=== PATIENT | male | born 1950 | race Two or more races ===

== ENCOUNTER 2023-12-02 18:55 | Inpatient (IN) | payer MEDICAID, OTHER ==
[~2023-12-02] VITALS: Ht 165.1 cm; Wt 78.2 kg
[2023-12-02 19:55] LABS: Basophils # (auto) 0 10 ^3/uL (0-0.2); Basophils % (auto) 0.9 % (0.0-2.0); Eosinophils # (auto) 0.1 10 ^3/uL (0-0.8); Hematocrit 43.7 % (41.0-53.0); Hemoglobin 13.9 g/dL (13.5-17.5); Lymphocytes # (auto) 1.3 10 ^3/uL (0.4-5.4); Lymphocytes % (auto) 24.6 % (10.0-50.0); Mean Corpuscular Hemoglobin 28.3 pg (28.0-32.0); Mean Corpuscular Hgb Conc. 31.8 g/dL (32.0-36.0); Monocytes # (auto) 0.3 10 ^3/uL (0-1.3); Monocytes % (auto) 5.5 % (0.0-12.0); Neutrophils # (auto) 3.6 10 ^3/uL (1.6-8.6); Nucleated Red Blood Cells % 0.1 %; Red Blood Cells 4.91 10^6/uL (4.5-5.90); Red Cell Distribution Width 13.5 % (11.8-14.3); White Blood Cell 5.3 10^3/uL (4.4-10.8)
[2023-12-02 20:14] LABS: Alanine Aminotransferase 27 U/L (7-40); Alkaline Phosphatase 185 U/L (46-116); Anion Gap 7 (5-15); BUN/Creatinine Ratio 9.6 (10.0-20.0); Blood Urea Nitrogen 15 mg/dL (9-23); Calcium 9.4 mg/dL (8.7-10.4); Carbon Dioxide 25 mmol/L (20-30); Chloride 89 mmol/L (98-107); Potassium 4.5 mmol/L (3.5-5.1); Sodium 121 mmol/L (136-145)
[2023-12-02 20:15] LABS: Albumin 4.2 g/dL (3.2-4.8); Aspartate Aminotransferase 12 U/L (13-40); Bilirubin, Total 0.6 mg/dL (0.2-1.0); Total Protein 6.4 g/dL (5.7-8.2)
[2023-12-02 20:38] LABS: Glucose 915 mg/dL (74-106)
[2023-12-02] MEDS: SODIUM CHLORIDE 0.9% 1,000 ML IV ONE ×2 (21:13→22:13)
[2023-12-02 21:23] LABS: Urine Bacteria NONE SEEN /hpf (None Seen); Urine Blood TRACE /uL (Negative); Urine Clarity Clear (Clear); Urine Color Colorless (Yellow); Urine Protein, UAD Negative (Negative); Urine Specific Gravity 1.023 (1.001-1.035); Urine Urobilinogen Normal (Negative); Urine WBC <1 /hpf (0 - 3)
[2023-12-02] MEDS ORDERED: ONDANSETRON HCL 4 MG/2 ML VIAL IV PRN (22:30)
[2023-12-02] MEDS ORDERED: HYDROcodone-ACET 5/325MG TAB PO PRN (22:30)
[2023-12-02] MEDS ORDERED: ACETAMINOPHEN 325 MG TAB PO PRN (22:30)
[2023-12-02] MEDS ORDERED: DEXTROSE (50%) 50ML SYRG IV PRN ×2 (22:30→23:15)
[2023-12-02] MEDS ORDERED: DOCUSATE SOD 100 MG CAP PO PRN (22:30)
[2023-12-02] MEDS: SODIUM CHLORIDE 0.9% 1,000 ML IV SCH (23:14)
[2023-12-02] MEDS ORDERED: INSULIN DRIP 100 UNIT/100ML 100 ML IV SCH (23:15)
[2023-12-02] MEDS ORDERED: SOD CHL 0.9%/ KCL 20MEQ 1,000 ML IV SCH (23:15)
[2023-12-02 23:29] LABS: Base Excess -5.3 mmol/L (-2.0-2.0)
[2023-12-02 23:37] LABS: Basophils # (auto) 0 10 ^3/uL (0-0.2); Basophils % (auto) 0.8 % (0.0-2.0); Eosinophils # (auto) 0.1 10 ^3/uL (0-0.8); Eosinophils % (auto) 1.3 % (0.0-7.0); Hematocrit 40.1 % (41.0-53.0); Hemoglobin 13.2 g/dL (13.5-17.5); Lymphocytes # (auto) 1.4 10 ^3/uL (0.4-5.4); Lymphocytes % (auto) 24.3 % (10.0-50.0); Mean Corpuscular Hemoglobin 28.5 pg (28.0-32.0); Mean Corpuscular Hgb Conc. 32.9 g/dL (32.0-36.0); Mean Corpuscular Volume 86.7 fL (80.0-100.0); Monocytes # (auto) 0.4 10 ^3/uL (0-1.3); Monocytes % (auto) 7.2 % (0.0-12.0); Neutrophils # (auto) 3.9 10 ^3/uL (1.6-8.6); Neutrophils % (auto) 66.4 % (37.0-80.0); Red Blood Cells 4.63 10^6/uL (4.5-5.90); Red Cell Distribution Width 13.3 % (11.8-14.3); White Blood Cell 5.8 10^3/uL (4.4-10.8)
[2023-12-02] MEDS ORDERED: MORPHINE SULFATE INJ 2 MG/ml SYRG IV PRN (23:45)
[2023-12-02] MEDS ORDERED: NITROGLYCERIN 0.4 MG SL TAB SL PRN (23:45)
[2023-12-02 23:50] LABS: Chloride 101 mmol/L (98-107); Potassium 4.1 mmol/L (3.5-5.1)
[2023-12-02 23:51] LABS: Anion Gap 9 (5-15); Calcium 8.7 mg/dL (8.7-10.4); Carbon Dioxide 20 mmol/L (20-30)
[2023-12-02 23:56] LABS: BUN/Creatinine Ratio 9.9 (10.0-20.0); Blood Urea Nitrogen 12 mg/dL (9-23)
[2023-12-02 23:58] LABS: Phosphorus 2.9 mg/dL (2.4-5.1)
[2023-12-03] MEDS: ACCU-CHEK COMFORT CURVE STRIP VI SCH
[2023-12-03] MEDS ORDERED: ACCU-CHEK COMFORT CURVE STRIP VI SCH
[2023-12-03 00:04] LABS: Sodium 130 mmol/L (136-145)
[2023-12-03 00:05] LABS: Glucose 625 mg/dL (74-106)
[2023-12-03] MEDS: InsuLIN REG 1unit/0.01ml Soln (100units/ml) SC SCH (00:06)
[2023-12-03] MEDS: SODIUM CHLORIDE 0.9% 1,000 ML IV SCH (00:18)
[2023-12-03] MEDS: INSULIN LANTUS (GLARGINE) 1 /0.01ml (100units/ml) SC ONE (04:45)
[2023-12-03 05:03] LABS: Basophils # (auto) 0.1 10 ^3/uL (0-0.2); Basophils % (auto) 0.9 % (0.0-2.0); Eosinophils # (auto) 0.1 10 ^3/uL (0-0.8); Eosinophils % (auto) 0.9 % (0.0-7.0); Hematocrit 40.5 % (41.0-53.0); Hemoglobin 13.6 g/dL (13.5-17.5); Lymphocytes # (auto) 1.6 10 ^3/uL (0.4-5.4); Mean Corpuscular Hemoglobin 28.4 pg (28.0-32.0); Mean Corpuscular Hgb Conc. 33.5 g/dL (32.0-36.0); Mean Corpuscular Volume 84.9 fL (80.0-100.0); Monocytes # (auto) 0.5 10 ^3/uL (0-1.3); Monocytes % (auto) 6.5 % (0.0-12.0); Neutrophils # (auto) 5.2 10 ^3/uL (1.6-8.6); Neutrophils % (auto) 69.7 % (37.0-80.0); Nucleated Red Blood Cells % 0.1 %; Red Blood Cells 4.77 10^6/uL (4.5-5.90); Red Cell Distribution Width 13.1 % (11.8-14.3); White Blood Cell 7.4 10^3/uL (4.4-10.8)
[2023-12-03 05:15] LABS: Alanine Aminotransferase 23 U/L (7-40); Albumin 4.2 g/dL (3.2-4.8); Alkaline Phosphatase 132 U/L (46-116); Anion Gap 7 (5-15); Aspartate Aminotransferase 12 U/L (13-40); BUN/Creatinine Ratio 11.5 (10.0-20.0); Bilirubin, Total 0.5 mg/dL (0.2-1.0); Blood Urea Nitrogen 12 mg/dL (9-23); Calcium 9.3 mg/dL (8.7-10.4); Carbon Dioxide 22 mmol/L (20-30); Chloride 107 mmol/L (98-107); Potassium 3.7 mmol/L (3.5-5.1); Sodium 136 mmol/L (136-145); Total Protein 6.6 g/dL (5.7-8.2)
[2023-12-03 05:34] LABS: Glucose 254 mg/dL (74-106)
[2023-12-03] MEDS: INSULIN LANTUS (GLARGINE) 1 /0.01ml (100units/ml) SC SCH (07:00)
[2023-12-03] MEDS: CLINDAMYCIN 600MG IV 50 ML IV ONE (11:14)
[2023-12-03] MEDS: ENOXAPARIN SOD 40 MG/0.4 ML SYRINGE SC SCH (11:14)
[2023-12-03 11:28] LABS: Chloride 108 mmol/L (98-107); Potassium 3.7 mmol/L (3.5-5.1); Sodium 136 mmol/L (136-145)
[2023-12-03 11:29] LABS: Anion Gap 6 (5-15); Carbon Dioxide 22 mmol/L (20-30)
[2023-12-03 11:30] LABS: Calcium 9.1 mg/dL (8.7-10.4)
[2023-12-03 11:35] LABS: BUN/Creatinine Ratio 12.5 (10.0-20.0); Blood Urea Nitrogen 11 mg/dL (9-23); Glucose 194 mg/dL (74-106)
[2023-12-03 11:40] VITALS: PULSE 61; RESP 16; O2SAT 98
[2023-12-03 17:47] LABS: Chloride 110 mmol/L (98-107); Potassium 3.7 mmol/L (3.5-5.1); Sodium 138 mmol/L (136-145)
[2023-12-03 17:48] LABS: Anion Gap 4 (5-15); Calcium 8.6 mg/dL (8.5-10.1); Carbon Dioxide 24 mmol/L (20-30)
[2023-12-03 17:53] LABS: BUN/Creatinine Ratio 12.9 (10.0-20.0); Blood Urea Nitrogen 11 mg/dL (9-23); Glucose 238 mg/dL (74-106)
[2023-12-03 19:20] VITALS: PULSE 78; RESP 16; O2SAT 98
[2023-12-03] MEDS: CLINDAMYCIN 600MG IV 50 ML IV SCH (20:20)
[2023-12-04] VITALS (8 sets, daily range): BP systolic 128–152; BP diastolic 63–105; PULSE 54–78; RESP 14–18; TEMP 97.7–98.7; O2SAT 93–99
[2023-12-04 10:58] LABS: Basophils # (auto) 0 10 ^3/uL (0-0.2); Basophils % (auto) 0.7 % (0.0-2.0); Eosinophils # (auto) 0.1 10 ^3/uL (0-0.8); Eosinophils % (auto) 1.1 % (0.0-7.0); Hematocrit 39.6 % (41.0-53.0); Lymphocytes # (auto) 1.5 10 ^3/uL (0.4-5.4); Lymphocytes % (auto) 26.7 % (10.0-50.0); Mean Corpuscular Hemoglobin 28.2 pg (28.0-32.0); Mean Corpuscular Volume 85.6 fL (80.0-100.0); Monocytes # (auto) 0.4 10 ^3/uL (0-1.3); Monocytes % (auto) 6.5 % (0.0-12.0); Neutrophils # (auto) 3.7 10 ^3/uL (1.6-8.6); Red Blood Cells 4.62 10^6/uL (4.5-5.90); Red Cell Distribution Width 13.4 % (11.8-14.3); White Blood Cell 5.7 10^3/uL (4.4-10.8)
[2023-12-04 11:15] LABS: Anion Gap 6 (5-15); Carbon Dioxide 25 mmol/L (20-30); Chloride 106 mmol/L (98-107); Potassium 4.1 mmol/L (3.5-5.1); Sodium 137 mmol/L (136-145)
[2023-12-04 11:16] LABS: Calcium 8.7 mg/dL (8.5-10.1)
[2023-12-04 12:03] LABS: Glucose 316 mg/dL (74-106)
[2023-12-04 12:04] LABS: BUN/Creatinine Ratio 10.6 (10.0-20.0); Blood Urea Nitrogen 10 mg/dL (9-23); Magnesium 1.7 mg/dL (1.6-2.6)
[2023-12-04] MEDS ORDERED: CEFEPIME 2GM/50ML NS 50 ML IV ONE (12:45)
[2023-12-04] MEDS ORDERED: VANCOMYCIN PER PHARMACY 0 MG IV SCH (12:45)
[2023-12-04] MEDS ORDERED: CEFEPIME 2GM/50ML NS 50 ML IV SCH (14:00)
[2023-12-04] MEDS: VANCOMYCIN 1GM/200ML 200 ML IV ONE (15:26)
[2023-12-05] VITALS (7 sets, daily range): BP systolic 119–147; BP diastolic 61–75; PULSE 61–77; RESP 15–19; TEMP 97.5–98.4; O2SAT 95–97
[2023-12-05] MEDS: VANCOMYCIN 1GM/200ML 200 ML IV SCH (06:27)
[2023-12-05 06:37] LABS: Basophils # (auto) 0 10 ^3/uL (0-0.2); Basophils % (auto) 0.5 % (0.0-2.0); Eosinophils # (auto) 0 10 ^3/uL (0-0.8); Eosinophils % (auto) 0.6 % (0.0-7.0); Hematocrit 33.3 % (41.0-53.0); Hemoglobin 11.1 g/dL (13.5-17.5); Lymphocytes # (auto) 1.3 10 ^3/uL (0.4-5.4); Mean Corpuscular Hemoglobin 28.7 pg (28.0-32.0); Mean Corpuscular Hgb Conc. 33.3 g/dL (32.0-36.0); Mean Corpuscular Volume 86.2 fL (80.0-100.0); Monocytes # (auto) 0.5 10 ^3/uL (0-1.3); Monocytes % (auto) 7.9 % (0.0-12.0); Neutrophils # (auto) 4.6 10 ^3/uL (1.6-8.6); Red Blood Cells 3.86 10^6/uL (4.5-5.90); Red Cell Distribution Width 12.9 % (11.8-14.3); White Blood Cell 6.5 10^3/uL (4.4-10.8)
[2023-12-05 06:45] LABS: Anion Gap 7 (5-15); Carbon Dioxide 21 mmol/L (20-30); Chloride 114 mmol/L (98-107); Potassium 2.9 mmol/L (3.5-5.1); Sodium 142 mmol/L (136-145)
[2023-12-05 06:46] LABS: Calcium 7.7 mg/dL (8.7-10.4)
[2023-12-05 06:51] LABS: BUN/Creatinine Ratio 13.2 (10.0-20.0); Blood Urea Nitrogen 9 mg/dL (9-23); Magnesium 1.6 mg/dL (1.6-2.6)
[2023-12-05 06:57] LABS: Glucose 64 mg/dL (74-106)
[2023-12-05] MEDS: MAGNESIUM SULFATE 1GM/100ML 100 ML IV SCH (10:13)
[2023-12-05] MEDS: POTASSIUM CHL 20MEQ/100ML 100 ML IV SCH (11:21)
[2023-12-06 05:00] VITALS: BP 121/72; PULSE 66; RESP 18; TEMP 98.4; O2SAT 97
[2023-12-06 06:19] LABS: Basophils # (auto) 0.1 10 ^3/uL (0-0.2); Basophils % (auto) 0.6 % (0.0-2.0); Eosinophils # (auto) 0 10 ^3/uL (0-0.8); Eosinophils % (auto) 0.6 % (0.0-7.0); Hematocrit 35.9 % (41.0-53.0); Lymphocytes # (auto) 1.3 10 ^3/uL (0.4-5.4); Lymphocytes % (auto) 15.2 % (10.0-50.0); Mean Corpuscular Hemoglobin 28.7 pg (28.0-32.0); Mean Corpuscular Hgb Conc. 33.3 g/dL (32.0-36.0); Monocytes # (auto) 0.6 10 ^3/uL (0-1.3); Monocytes % (auto) 6.6 % (0.0-12.0); Neutrophils # (auto) 6.6 10 ^3/uL (1.6-8.6); Nucleated Red Blood Cells % 0.1 %; Red Blood Cells 4.18 10^6/uL (4.5-5.90); Red Cell Distribution Width 13.3 % (11.8-14.3); White Blood Cell 8.5 10^3/uL (4.4-10.8)
[2023-12-06 06:31] LABS: Chloride 108 mmol/L (98-107); Potassium 3.8 mmol/L (3.5-5.1); Sodium 140 mmol/L (136-145)
[2023-12-06 06:32] LABS: Anion Gap 8 (5-15); Calcium 8.7 mg/dL (8.7-10.4); Carbon Dioxide 24 mmol/L (20-30)
[2023-12-06 06:37] LABS: BUN/Creatinine Ratio 12.3 (10.0-20.0); Blood Urea Nitrogen 10 mg/dL (9-23); Glucose 69 mg/dL (74-106)
[2023-12-06 08:00] VITALS: BP 156/70; PULSE 65; PULSE 69; RESP 20; TEMP 98.3; O2SAT 97
[2023-12-06 08:45] VITALS: BP 156/70; PULSE 69; RESP 20; TEMP 98.3; O2SAT 97
[2023-12-06] MEDS: hydrALAZINE HCL 20 MG/ML VL IV PRN (10:12)
[2023-12-06 12:35] VITALS: BP 127/69; PULSE 67; RESP 20; TEMP 98.1; O2SAT 96
[2023-12-06 16:35] VITALS: BP 120/68; PULSE 69; RESP 18; TEMP 98.2; O2SAT 97
[2023-12-06] MEDS: metFORMIN HYDROCHLORIDE 500 MG TAB PO SCH (17:17)
[2023-12-06 20:00] VITALS: BP 137/65; PULSE 78; PULSE 92; RESP 20; TEMP 97.5; O2SAT 96
[2023-12-06] MEDS: VANCOMYCIN 1GM/200ML 200 ML IV SCH (22:13)
[2023-12-07 01:00] VITALS: BP 141/68; PULSE 67; RESP 18; TEMP 98.2; O2SAT 96
[2023-12-07 05:00] VITALS: BP 140/68; PULSE 76; RESP 18; TEMP 97.6; O2SAT 96
[2023-12-07 05:47] LABS: Basophils # (auto) 0.1 10 ^3/uL (0-0.2); Basophils % (auto) 0.6 % (0.0-2.0); Eosinophils # (auto) 0.1 10 ^3/uL (0-0.8); Hematocrit 36.8 % (41.0-53.0); Hemoglobin 12.2 g/dL (13.5-17.5); Lymphocytes # (auto) 1.7 10 ^3/uL (0.4-5.4); Lymphocytes % (auto) 21.6 % (10.0-50.0); Mean Corpuscular Hemoglobin 28.9 pg (28.0-32.0); Mean Corpuscular Hgb Conc. 33.1 g/dL (32.0-36.0); Mean Corpuscular Volume 87.4 fL (80.0-100.0); Monocytes # (auto) 0.6 10 ^3/uL (0-1.3); Monocytes % (auto) 7.1 % (0.0-12.0); Neutrophils # (auto) 5.4 10 ^3/uL (1.6-8.6); Neutrophils % (auto) 69.7 % (37.0-80.0); Red Blood Cells 4.21 10^6/uL (4.5-5.90); Red Cell Distribution Width 13.6 % (11.8-14.3); White Blood Cell 7.8 10^3/uL (4.4-10.8)
[2023-12-07 06:06] LABS: Alanine Aminotransferase 21 U/L (7-40); Albumin 3.3 g/dL (3.2-4.8); Alkaline Phosphatase 93 U/L (46-116); Anion Gap 6 (5-15); Aspartate Aminotransferase 24 U/L (13-40); BUN/Creatinine Ratio 10.5 (10.0-20.0); Blood Urea Nitrogen 8 mg/dL (9-23); CRP High Sensitivity 0.09 mg/dL (<1.0); Calcium 8.5 mg/dL (8.5-10.1); Carbon Dioxide 24 mmol/L (20-30); Chloride 109 mmol/L (98-107); Glucose 111 mg/dL (74-106); Potassium 3.7 mmol/L (3.5-5.1); Sodium 139 mmol/L (136-145)
[2023-12-07 06:07] LABS: Bilirubin, Total 0.4 mg/dL (0.2-1.0); Total Protein 5.1 g/dL (5.7-8.2)
[2023-12-07 06:36] LABS: Magnesium 1.9 mg/dL (1.6-2.6)
[2023-12-07] MEDS: glipiZIDE 5 MG TAB PO SCH (06:49)
[2023-12-07 08:00] VITALS: BP 147/71; PULSE 64; PULSE 66; RESP 20; TEMP 97.9; O2SAT 92
[2023-12-07] MEDS ORDERED: METF-370 PO (08:51)
[2023-12-07] MEDS ORDERED: GLIP5TAB12 PO (08:51)
[2023-12-07] MEDS ORDERED: CLIN150C18 PO (08:51)
[2023-12-07] MEDS ORDERED: BLOO-169 BC (11:12)
[2023-12-07 12:51] VITALS: BP 128/70; PULSE 70; RESP 20; TEMP 97.9; O2SAT 97
[2023-12-07 12:55] VITALS: BP 128/70; PULSE 70; RESP 20; TEMP 97.9; O2SAT 97
[2023-12-07] MEDS: CLINDAMYCIN HCL 150 MG CAP PO SCH (14:10)
== END 2023-12-07 14:43 | disposition home or self-care (01) | DRG 682 ==
LOC: ER 18:55 → TELE 23:49 → TELE-WESTW 12-03 23:00
PROVIDERS: ADMIT Internal Medicine; ATTEND Internal Medicine
DX: N17.0 Acute kidney failure with tubular necrosis (principal); E11.00 Type 2 diabetes mellitus with hyperosmolarity without nonketotic hyperglycemic-hyperosmolar coma (NKHHC); E87.1 Hypo-osmolality and hyponatremia; L02.212 Cutaneous abscess of back [any part, except buttock and flank]; E11.65 Type 2 diabetes mellitus with hyperglycemia; I16.0 Hypertensive urgency; E86.0 Dehydration; L72.3 Sebaceous cyst; Z88.0 Allergy status to penicillin
CPT/HCPCS: 36415; 36600; 70450; 71045; 76705; 80048; 80053; 80202; 81001; 82010; 82805; 82947; 82962; 83036; 83605; 83735; 83880; 83930; 84100; 84484; 85025; 85379; 86141; 87040; 87205; 93005; 96360; G0378; J1815; J3480; J3490